=== PATIENT | female | born 1960 | race Caucasian/White ===

== ENCOUNTER 2021-08-16 13:48 | Emergency (ER) | payer BC, SELFPAY ==
--- NOTE | ~2021-08-16 | XR_ITS ---
EXAMINATION: XR ankle RT min 3V, XR foot RT min 3V EXAM DATE: 08/16/2021 14:18 INDICATION: Missed step, inversion injury. Right ankle and foot pain, initial encounter. TECHNIQUE: Right foot dorsoplantar, lateral and oblique projections obtained and reviewed. Right ank le frontal, lateral and oblique projections obtained and reviewed. There is no prior study for narendra owusu. FINDINGS: There is closed posttraumatic nondisplaced right fibular tip avulsion fracture suspected t o be acute. Fracture fragment is about 5 mm in size, would likely be treated conservatively as a spra in. No metatarsal or phalangeal fractures. There is moderate right 1st metatarsophalangeal joint primary osteoarthritis with sizable osteophyte or osteochondroma projecting off the head of the metatarsal margarita ne superomedially, benign finding. IMPRESSION: 1. Tiny right fibular tip avulsion fracture suspected to be acute. Overlying swelling. 2. 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 Reviewed, dictated and finalized at location A. IMPRESSION: 1. Tiny right fibular tip avulsion fracture suspected to be acute. Overlying s welling. 2. 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
[2021-08-16 13:56] VITALS: BP 112/74; PULSE 79; RESP 14; TEMP 36.8; O2SAT 99
[2021-08-16 14:02] VITALS: BP 112/74; PULSE 79; RESP 14; TEMP 36.8; O2SAT 99
--- NOTE | 2021-08-16 14:04 | ED.GENADULT ---
HPI - General Adult General Chief complaint: Extremity Injury, Lower Stated complaint: rt foot inj Source: patient Mode of arrival: ambulatory Limitations: no limitations History of Present Illness HPI narrative: Pt presents for evaluation of right foot and ankle pain. She states she was walking down steps about an hour ago when she inverted in right ankle. Since that time she has experienced pain in lateral aspect of the ankle. At rest, she denies any pain. However, with weightbearing her pain increases to 10/10 in severity. No paresthesias. No history of problems with her right ankle in the past. She has not taken any medications to assist with her symptoms. No additional complaints or concerns. Related Data Home Medications Medication Instructions Recorded Confirmed trazodone 100 mg tablet 150 mg PO DAILY tablet 06/23/20 Allergies Allergy/AdvReac Type Severity Reaction Status Date / Time codeine Allergy Unknown Verified 08/16/21 14:01 Review of Systems Review of Systems: CONSTITUTIONAL: Denies fever, chills, or sweats. EYES: Denies visual changes, redness, or discharge. ENT: Denies rhinorrhea, congestion, sore throat, or otalgia. CARDIOVASCULAR: Denies chest pain, palpitations, or edema. RESPIRATORY: Denies cough or dyspnea. GASTROINTESTINAL: Denies abdominal pain, nausea, vomiting, or diarrhea. GENITOURINARY: Denies dysuria or hematuria. SKIN: Denies rash or itching. MUSCULOSKELETAL: Reports right ankle pain. Denies back pain or myalgia. NEUROLOGIC: Denies headache, numbness, dizziness, or weakness. PSYCHIATRIC: Denies anxiety or depression. [facility] Past Medical History Medical History (Updated 08/16/21 @ 15:04 by Clifford Ricci, [employer], ) No significant past medical history Surgical History Surgical History History of hysterectomy Family History Family History (Updated 08/16/21 @ 14:07 by Clifford Ricci [facility], ) Mother No pertinent past medical history Social History Social History Smoking status: Never smoker Alcohol intake: current Substance use: never Living arrangements: with family Gender identity (if verbalized by the patient): Female Sexual Orientation (if Verbalized by the Patient): Straight or Heterosexual Spiritual care concerns: No Exam Narrative: GENERAL: Well-appearing, well-nourished, and in no acute distress. HEAD: Normocephalic, atraumatic. EYES: PERRLA and EOMI. ENT: Nares clear, no rhinorrhea or epistaxis. Mucous membranes moist. Oropharynx without tonsillar hypertrophy exudate or other lesions. Bilateral TMs pearly menjivar nonbulging NECK: Supple. No adenopathy or masses. No carotid bruits or JVD CHEST: Clear to auscultation. No respiratory distress. No wheezes rales or rhonchi HEART: Regular rate and rhythm. No murmur heard. Normal peripheral pulses. ABDOMEN: Soft, nontender, nondistended, normal active bowel sounds. EXTREMITIES: Normal range of motion. No edema. Tenderness over right lateral malleolus and over dorsal aspect of 4th and 5th metatarsals of right foot. No gross swelling SKIN: Warm, dry, no rash. NEURO: No focal deficits. Alert and oriented x3. PSYCH: Normal mood and affect. Course Course Emergency Course: This is a 61-year-old female who presented with complaints of ankle pain. X ray showed avulsion fracture. Walking boot not available. Pt provided with posterior OCL. Given crutches. Will dc with [employer] script. She should followup with ortho this coming week and should return for worsening symptoms. Pt in agreement with plan of care. Vital Signs Vital signs: Vital Signs Temperature 36.8 C 08/16/21 13:56 Pulse Rate 79 08/16/21 13:56 Respiratory Rate 14 08/16/21 13:56 Blood Pressure 112/74 08/16/21 13:56 Pulse Oximetry 99 08/16/21 13:56 Temperature 36.8 C 08/16/21 14:02 Pulse Rat
== END 2021-08-16 15:10 | disposition home or self-care (01) ==
PROVIDERS: Emergency Provider Nurse Practitioner; PCP Internal Medicine Infectious Disease
DX: S82.839A Other fracture of upper and lower end of unspecified fibula, initial encounter for closed fracture (principal); X50.9XXA Other and unspecified overexertion or strenuous movements or postures, initial encounter
CPT/HCPCS: 29515; 73610; 73630; 99214; G0463

== ENCOUNTER 2022-06-02 08:17 | Outpatient (CLI) | payer BC, SELFPAY ==
--- NOTE | ~2022-06-02 | US_ITS ---
EXAMINATION: US art doppler w press LE BI DATE: 06/02/2022 09:30 INDICATION: Raynaud's syndrome TECHNIQUE: Segmental pressures and plethysmographic and Doppler waveforms of the brachial and lower e xtremity arteries were obtained. COMPARISON: None. FINDINGS: Right and left brachial artery pressures of 102 mm Hg and 91 mm Hg, respectively, are concordant (nor mal difference <= 30 mmHg). The right and left high-thigh pressure indices are 1.27 and 1.26, respect ively (normal > 1.2). The right ankle-brachial index (YAKELIN) is 1.29 (normal >= 0.9-1). The right great toe-brachial index (T BI) is 0.11 (normal >= 0.6-0.8). The right lower extremity segmental pressure gradients are increased between the right dorsalis pedis artery and the right [id number] popliteal artery, right posteri or tibial artery and contralateral left dorsalis pedis artery (normal gradients <= 20-30 mmHg betwee n adjacent levels on the same leg or the same levels on the two legs). Arterial waveforms are biphasi c with brisk systolic upstrokes throughout the arteries of the right lower limb. The left YAKELIN is 1.20. The left TBI is 0.13. The left lower extremity segmental pressure gradients are normal. Arterial waveforms are biphasic with brisk systolic upstrokes throughout the arteries of the left lower limb. IMPRESSION: 1. Peripheral arterial occlusive disease with normal bilateral ABIs but severely decreased bilateral TBI's which suggests stenosis distal to the ankles which would be consistent with the provided histor y of Raynaud's syndrome. Reviewed, dictated and finalized at location B. IMPRESSION: 1. Peripheral arterial occlusive disease with normal bilateral ABIs but severel y decreased bilateral TBI's which suggests stenosis distal to the ankles which would be consistent with the provided history of Raynaud's syndrome.
== END 2022-06-02 08:18 | disposition home or self-care (01) ==
PROVIDERS: PCP Internal Medicine Infectious Disease
DX: I73.00 Raynaud's syndrome without gangrene (principal)
CPT/HCPCS: 93923